=== PATIENT | male | born 1965 | race Caucasian/White ===

== ENCOUNTER 2016-10-25 08:02 | Day surgery (SDC) | payer BC ==
--- NOTE | 2016-10-22 06:04 | HP ---
DATE OF ADMISSION: 10/25/2016 CHIEF COMPLAINT: Umbilical hernia. HISTORY OF PRESENT ILLNESS: The patient is a 51-year-old male who was seen in the office initially last December with complaints of an umbilical hernia. Since that time the hernia has gotten somewhat larger at times it is painful to him. Denies change in bowel habits. Recently he had a work physical and a small left inguinal hernia was identified. The patient has no pain in the left groin. He did have a inguinal hernia repaired at on the left. He himself cannot feel the mass in the left groin. PAST MEDICAL HISTORY: Denies. PAST SURGICAL HISTORY: Left inguinal hernia, left finger. MEDICATIONS: None. ALLERGIES: CODEINE, IBUPROFEN. PHYSICAL EXAM: HEENT is normocephalic. Sclerae anicteric. GENERAL: Well-developed, well-nourished male in no distress. CHEST: No deformities. ABDOMEN: Soft, nondistended. Moderate sized incarcerated umbilical hernia. Small reducible left inguinal hernia and nontender. Both testes normal. No palpable right inguinal hernia. Previous scar on the left is noted. IMPRESSION: A 51-year-old male with symptomatic umbilical hernia. PLAN: Will proceed with laparoscopic repair of incarcerated umbilical hernia with robotic assistance. The risks of bleeding, infection, pain, scarring, recurrence, bowel injury were all discussed. The patient understands and wishes to proceed. Additionally, it was discussed that a sosa would be assisting with the proposed surgery.
[2016-10-22 10:12] VITALS: BMI 29.0
[~2016-10-25 08:02] MED LIST: DEXAMETHASONE SOD PHOSPHATE 10 MG/ML 1 ML VIAL IV ONE; HEPARIN SODIUM,PORCINE 5,000 UNIT/ML 1 ML VIAL SQ ONE; LACTATED RINGERS 1,000 ML IV ONE; LIDOCAINE 1% 20 ML VIAL (10MG/ML) FOR IV START INTRADERMA PRN; ONDANSETRON 4 MG/2 ML VIAL IVP ONE; SCOPOLAMINE 1.5MG/72HR PATCH TRANSDERM ONE; ceFAZolin 2 GM in SODIUM CHLORIDE 0.9% 100 ML IVPB ONE; fentaNYL (PF) 50 MCG/ML 2 ML AMP IV PRN
[2016-10-25] MEDS ORDERED: LIDOCAINE 1% 20 ML VIAL (10MG/ML) FOR IV START INTRADERMA ONE (08:41)
[2016-10-25] MEDS ORDERED: METOPROLOL TARTRATE 5 MG/5 ML VIAL IVP ONE (08:45)
[2016-10-25 09:00] LABS: Basophils # (A) 0.1 k/uL (0-0.2); Basophils % (A) 1 %; CHCM 35.3; Eosinophils # (A) 0.3 k/uL (0-0.7); Eosinophils % (A) 4 %; HDW 2.65; HGB 16.5 gm/dL (13.0-17.5); Luc # (Auto) 0.19; Luc % (Auto) 2; Lymphocytes # (A) 2.3 k/uL (1.0-4.8); Lymphocytes % (A) 29 %; MCH 29.9 pg (25.0-35.0); MCV 85.4 fL (80.0-100.0); Mean Platelet Volume 7.9; Monocytes # (A) 0.5 k/uL (0-1.0); Monocytes % (A) 6 %; Neutrophils # (A) 4.5 k/uL (1.3-7.7); Neutrophils % (A) 57 %; RBC 5.51 m/uL (4.30-5.90); RDW 13.5 % (11.5-15.5); WBC 7.8 k/uL (3.8-10.6); WBC (Perox) 8.25
[2016-10-25] MEDS ORDERED: MIDAZOLAM 2 MG/2 ML VIAL IV ONE (09:13)
[2016-10-25] MEDS ORDERED: LIDOCAINE 1% INJ 10MG/ML (20 ML MDV) ONE (09:31)
[2016-10-25] MEDS ORDERED: MIDAZOLAM 2 MG/2 ML VIAL ONE (09:31)
[2016-10-25] MEDS ORDERED: NEOSTIGMINE 1 MG/ML 10 ML VIAL ONE (09:31)
[2016-10-25] MEDS ORDERED: GLYCOPYRROLATE 0.2 MG/ML 2 ML VIAL ONE (09:31)
[2016-10-25] MEDS ORDERED: SUCCINYLCHOLINE CHLORIDE 100 MG/5 ML SYR IV ONE (09:31)
[2016-10-25] MEDS ORDERED: fentaNYL (PF) 50 MCG/ML 2 ML AMP ONE (09:31)
[2016-10-25] MEDS ORDERED: PROPOFOL 10 MG/ML 20 ML VIAL IV ONE (09:31)
[2016-10-25] MEDS ORDERED: ROCURONIUM BROMIDE 10 MG/ML 10 ML VIAL IV ONE (09:31)
[2016-10-25] MEDS ORDERED: BUPIVACAIN-EPI 0.25%-1:200,000 30 ML VIAL SQ ONE (10:10)
[2016-10-25 12:12] VITALS: TEMP 97.6
[2016-10-25] MEDS ORDERED: HYDROmorphone 1 MG/ML 1 ML SYRINGE IVP ONE (12:24)
[2016-10-25] MEDS ORDERED: traMADol 50 MG TAB PO PRN (12:25)
[2016-10-25] MEDS ORDERED: NALOXONE 0.4 MG/ML 1 ML VIAL IV PRN (12:25)
--- NOTE | 2016-10-25 12:32 | P.OP ---
Date of Procedure: 10/25/16 Procedure(s) Performed: PREOPERATIVE DIAGNOSIS: Incarcerated umbilical hernia POSTOPERATIVE DIAGNOSIS: Same PROCEDURE: Laparoscopic repair incarcerated umbilical hernia with da Kenna robot assistance SURGEON: Bhavya EBL: Minimal ANESTHESIA: General COMPLICATIONS: None OPERATIVE PROCEDURE: Patient was placed in the operative table in the supine position. The patient was placed under general anesthesia. The patient did not void preoperatively and for that reason a Méndez catheter was placed. The abdomen was prepped and draped in usual sterile fashion. A 5 mm optical trocar was used to gain entrance into the abdominal cavity in the left upper quadrant. Insufflation took place at that time. A 12 mm trocar was then placed in the lateral aspect of the left midabdomen after rotating the patient slightly to the right. An 8 mm trocar was placed in the left lower quadrant under direct visualization. The initial 5 was then switched to an 8 mm trochars well. The robotic arms were brought in and docking into place. The pro-grasp was advanced into the abdominal cavity through the left lower quadrant trocar site under direct visualization and the Metzenbaums were advanced into the left upper quadrant trocar site under direct visualization. The 12 mm 30 scope was advanced into the perineal cavity directed up. The incarcerated fat present within the hernia was then carefully dissected using both blunt dissection and cautery. The preperitoneal space was then dissected and the fatty preperitoneal tissue was retracted superiorly and inferiorly. This exposed to the fascial defect nicely. This measured about 2.5 cm in size. The defect was then closed vertically using a running 0 Stretta fix suture. This reapproximated the fascial defect nicely. The 11 mm ventral light mesh was then utilized. This was brought up to the abdominal wall using a Dillon Blount and a previously placed stitch in the center of the mesh. The mesh was then circumferentially sutured to the peritoneum and posterior fascial structures using short running 2-0 Stretta fix sutures. This suture was also utilized in the center to approximate the mesh to the abdominal wall. At this time the needles were removed. The fascia at the 12 mm site was closed using 2 separate 0 Vicryl sutures and the Dillon Blount technique. Incidentally the patient's left internal hernia was inspected and noted to be fairly small. The pneumoperitoneum was evacuated. The skin at the 3 incision sites were closed using interrupted 4-0 Monocryl sutures. A cotton ball was placed within the umbilicus and a suction dressing was applied. Steri-Strips and sterile dressings were applied to the incision sites. DISPOSITION: Stable to recovery room
[2016-10-25] MEDS ORDERED: traMADol 50 MG TAB PO ONE (14:15)
[2016-10-25 15:55] VITALS: RESP 16
[2016-10-25 16:34] VITALS: BP 140/91; PULSE 83
== END 2016-10-25 17:30 | disposition home or self-care (01) ==
LOC: OR 08:02
PROVIDERS: ATTEND Surgery
DX: K42.0 Umbilical hernia with obstruction, without gangrene (principal); K40.90 Unilateral inguinal hernia, without obstruction or gangrene, not specified as recurrent; I25.10 Atherosclerotic heart disease of native coronary artery without angina pectoris; I10 Essential (primary) hypertension; F17.210 Nicotine dependence, cigarettes, uncomplicated; I25.2 Old myocardial infarction; E78.5 Hyperlipidemia, unspecified; Z79.82 Long term (current) use of aspirin; Z79.899 Other long term (current) drug therapy; Z88.5 Allergy status to narcotic agent; Z88.8 Allergy status to other drugs, medicaments and biological substances
CPT/HCPCS: 49653; S2900; 85025; 93005

== ENCOUNTER 2020-03-27 03:37 | Emergency (ER) | payer OTHER ==
[2020-03-27 03:45] VITALS: TEMP 97.5
[2020-03-27] MEDS ORDERED: SODIUM CHLORIDE 0.9% 1,000 ML IV STA ×2 (03:52→04:02)
[2020-03-27] MEDS ORDERED: MORPHINE SULFATE 4 MG/ML SYRINGE IVP STA ×2 (04:02)
--- NOTE | 2020-03-27 04:04 | ED ---
Back Pain HPI - General Chief Complaint: Back Pain/Injury Stated Complaint: Lt Arm Pain Time Seen by Provider: 03/27/20 03:45 Source: patient, RN notes reviewed, old records reviewed Limitations: no limitations - History of Present Illness Initial Comments: Is a 54-year-old male today. Patient Dese for evaluation of shoulder pain severe chest pain related to back to her left scapula symptoms for a week have been episodic and severe today with some shortness of breath. Patient has history of muscular skeletal injury and scapular pain from doing a lot of physical labor. Sensation states pain just feels little bit different. Denying any fevers and no shortness of breath currently MD Complaint: back pain, back injury, other (Severe left shoulder cramping in the back pain) -: week(s) Similar Symptoms Previously: Yes Place: home Radiation: none Severity: severe Severity scale (1-10): 8 Quality: sharp Consistency: intermittent Improves With: none Worsens With: movement Context: while lifting, turning/twisting Associated Symptoms: denies other symptoms - Related Data Home Medications Medication Instructions Recorded Confirmed Aspirin [Adult Low Dose Aspirin EC] 81 mg PO DAILY 10/22/16 10/25/16 Atorvastatin Calcium [Lipitor] 80 mg PO HS 10/22/16 10/25/16 Lisinopril 5 mg PO BID 10/22/16 10/25/16 Metoprolol Tartrate 25 mg PO BID 10/22/16 10/25/16 Nitroglycerin Sl Tabs [Nitrostat] 0.4 mg SL DIRECTED PRN 10/22/16 10/25/16 Previous Rx's Medication Instructions Recorded traMADol HCl [Ultram] 50 mg PO Q6H PRN #30 tab 10/25/16 Allergies Allergy/AdvReac Type Severity Reaction Status Date / Time aspirin Allergy Rash/Hives Verified 03/27/20 03:45 codeine Allergy Unknown Verified 03/27/20 03:45 ibuprofen Allergy Swelling Verified 03/27/20 03:45 Review of Systems ROS Statement: Those systems with pertinent positive or pertinent negative responses have been documented in the HPI. ROS Other: All systems not noted in ROS Statement are negative. Past Medical History Past Medical History: Hyperlipidemia, Hypertension, Myocardial Infarction ([place]) Last Myocardial Infarction Date:: 2011 History of Any Multi-Drug Resistant Organisms: None Reported Past Surgical History: Heart Catheterization With Stent, Hernia Repair, Orthopedic Surgery Additional Past Surgical History / Comment(s): tendon to index finger. REMOVAL POLYPS FROM THROAT Past Anesthesia/Blood Transfusion Reactions: No Reported Reaction Date of Last Stent Placement:: 2011 Past Psychological History: No Psychological Hx Reported Smoking Status: Current every day smoker Past Alcohol Use History: None Reported Past Drug Use History: None Reported - Past Family History Mother Family Medical History: Cancer General Exam Limitations: no limitations General appearance: alert, in no apparent distress Head exam: Present: atraumatic, normocephalic, normal inspection Eye exam: Present: normal appearance, PERRL, EOMI. Absent: scleral icterus, conjunctival injection, periorbital swelling ENT exam: Present: normal exam, mucous membranes moist Neck exam: Present: normal inspection. Absent: tenderness, meningismus, lymphadenopathy Respiratory exam: Present: normal lung sounds bilaterally. Absent: respiratory distress, wheezes, rales, rhonchi, stridor Cardiovascular Exam: Present: regular rate, normal rhythm, normal heart sounds. Absent: systolic murmur, diastolic murmur, rubs, gallop, clicks GI/Abdominal exam: Present: soft, normal bowel sounds. Absent: distended, tenderness, guarding, rebound, rigid Extremities exam: Present: normal inspection, full ROM, normal capillary refill, other (. Tenderness to left shoulder and left scapular area). Absent: tenderness, pedal edema, joint swelling, calf tenderness Back exam: Present: normal inspection Neurological exam: Present: alert, oriented X3, CN II-XII intact Psychiatric exam: Present: normal affect, normal mood Skin exam: Present: warm, dry, intact, normal color. Absent: rash Course Vital Signs 03/27/20 03/27/20 03/27/20 03:40 05:30 06:53 Temperature 97.5 F L Pulse Rate 70 61 66 Respiratory 20 19 18 Rate Blood Pressure 156/109 131/80 125/75 O2 Sat by Pulse 98 96 97 Oximetry - Reevaluation(s) Reevaluation #1: Medical records reviewed Pain is controlled Patient informed of results okay for discharge Medical Decision Making - Medical Decision Making 54 male DF for evaluation patient does appear to muscle skeletal injury, muscle strain and pain. Patient's pain is controlled here in the ER and can be discharged home - Lab Data Result diagrams: 03/27/20 04:00 03/27/20 04:00 Lab Results 03/27/20 03/27/20 03/27/20 Range/Units 04:00 04:00 04:00 WBC 11.0 H (3.8-10.6) k/uL RBC 5.25 (4.30-5.90) m/uL Hgb 15.2 (13.0-17.5) gm/dL Hct 45.6 (39.0-53.0) % MCV 86.8 (80.0-100.0) fL MCH 29.0 (25.0-35.0) pg MCHC 33.4 (31.0-37.0) g/dL RDW 13.4 (11.5-15.5) % Plt Count 233 (150-450) k/uL Neutrophils % 63 % Lymphocytes % 23 % Monocytes % 7 % Eosinophils % 5 % Basophils % 1 % Neutrophils # 6.9 (1.3-7.7) k/uL Lymphocytes # 2.5 (1.0-4.8) k/uL Monocytes # 0.7 (0-1.0) k/uL Eosinophils # 0.6 (0-0.7) k/uL Basophils # 0.1 (0-0.2) k/uL PT 9.6 (9.0-12.0) sec INR 0.9 (<1.2) APTT 23.5 (22.0-30.0) sec D-Dimer 0.44 (<0.60) mg/L FEU Sodium 136 L (137-145) mmol/L Potassium 4.1 (3.5-5.1) mmol/L Chloride 108 H (98-107) mmol/L Carbon Dioxide 20 L (22-30) mmol/L Anion Gap 8 mmol/L BUN 12 (9-20) mg/dL Creatinine 0.78 (0.66-1.25) mg/dL Est GFR (CKD-EPI)AfAm >90 (>60 ml/min/1.73 sqM) Est GFR (CKD-EPI)NonAf >90 (>60 ml/min/1.73 sqM) Glucose 134 H (74-99) mg/dL Calcium 9.2 (8.4-10.2) mg/dL Magnesium 1.9 (1.6-2.3) mg/dL Total Bilirubin 0.6 (0.2-1.3) mg/dL AST 25 (17-59) U/L ALT 21 (4-49) U/L Alkaline Phosphatase 70 (38-126) U/L Troponin I (0.000-0.034) ng/mL NT-Pro-B Natriuret Pep pg/mL Total Protein 7.1 (6.3-8.2) g/dL Albumin 4.0 (3.5-5.0) g/dL Lipase 62 (23-300) U/L 03/27/20 03/27/20 Range/Units 04:00 04:00 WBC (3.8-10.6) k/uL RBC (4.30-5.90) m/uL Hgb (13.0-17.5) gm/dL Hct (39.0-53.0) % MCV (80.0-100.0) fL MCH (25.0-35.0) pg MCHC (31.0-37.0) g/dL RDW (11.5-15.5) % Plt Count (150-450) k/uL Neutrophils % % Lymphocytes % % Monocytes % % Eosinophils % % Basophils % % Neutrophils # (1.3-7.7) k/uL Lymphocytes # (1.0-4.8) k/uL Monocytes # (0-1.0) k/uL Eosinophils # (0-0.7) k/uL Basophils # (0-0.2) k/uL PT (9.0-12.0) sec INR (<1.2) APTT (22.0-30.0) sec D-Dimer (<0.60) mg/L FEU Sodium (137-145) mmol/L Potassium (3.5-5.1) mmol/L Chloride (98-107) mmol/L Carbon Dioxide (22-30) mmol/L Anion Gap mmol/L BUN (9-20) mg/dL Creatinine (0.66-1.25) mg/dL Est GFR (CKD-EPI)AfAm (>60 ml/min/1.73 sqM) Est GFR (CKD-EPI)NonAf (>60 ml/min/1.73 sqM) Glucose (74-99) mg/dL Calcium (8.4-10.2) mg/dL Magnesium (1.6-2.3) mg/dL Total Bilirubin (0.2-1.3) mg/dL AST (17-59) U/L ALT (4-49) U/L Alkaline Phosphatase (38-126) U/L Troponin I <0.012 (0.000-0.034) ng/mL NT-Pro-B Natriuret Pep 113 pg/mL Total Protein (6.3-8.2) g/dL Albumin (3.5-5.0) g/dL Lipase (23-300) U/L - EKG Data -: EKG Interpreted by Me (EKG is sinus rhythm of 67, ID 180, QRS 90, QTc 412) - Radiology Data Radiology results: report reviewed (CT a chest negative for aacute dz), image reviewed Disposition Clinical Impression: Left shoulder pain, Thoracic back pain Disposition: HOME SELF-CARE Condition: Good Instructions (If sedation given, give patient instructions): Shoulder Sprain (ED), Back Pain (ED) Is patient prescribed a controlled substance at d/c from ED?: No Referrals: Nain Jenkins MD [Primary Care Provider] - 1-2 days
[2020-03-27 04:19] LABS: Basophils # (A) 0.1 k/uL (0-0.2); Basophils % (A) 1 %; Eosinophils # (A) 0.6 k/uL (0-0.7); Eosinophils % (A) 5 %; HCT 45.6 % (39.0-53.0); HGB 15.2 gm/dL (13.0-17.5); Lymphocytes # (A) 2.5 k/uL (1.0-4.8); Lymphocytes % (A) 23 %; MCHC 33.4 g/dL (31.0-37.0); MCV 86.8 fL (80.0-100.0); Mean Platelet Volume 8.5; Monocytes # (A) 0.7 k/uL (0-1.0); Monocytes % (A) 7 %; Neutrophils # (A) 6.9 k/uL (1.3-7.7); Neutrophils % (A) 63 %; Platelet Count 233 k/uL (150-450); RBC 5.25 m/uL (4.30-5.90); RDW 13.4 % (11.5-15.5)
[2020-03-27 04:28] LABS: ALT 21 U/L (4-49); AST 25 U/L (17-59); African American GFR (CKD) >90 (>60 ml/min/1.73 sqM); Alkaline Phosphatase 70 U/L (38-126); Anion Gap 8 mmol/L; Blood Urea Nitrogen 12 mg/dL (9-20); Calcium 9.2 mg/dL (8.4-10.2); Carbon Dioxide 20 mmol/L (22-30); Chloride 108 mmol/L (98-107); Glucose 134 mg/dL (74-99); Magnesium 1.9 mg/dL (1.6-2.3); Non-African American GFR(CKD) >90 (>60 ml/min/1.73 sqM); Potassium 4.1 mmol/L (3.5-5.1); Sodium 136 mmol/L (137-145); Total Bilirubin 0.6 mg/dL (0.2-1.3); Total Protein 7.1 g/dL (6.3-8.2)
[2020-03-27 04:31] LABS: D-Dimer 0.44 mg/L FEU (<0.60); INR 0.9 (<1.2); Partial Thromboplastin Time 23.5 sec (22.0-30.0); Prothrombin Time 9.6 sec (9.0-12.0)
--- NOTE | 2020-03-27 04:40 | CT ---
EXAMINATION TYPE: CT angio chest DATE OF EXAM: 03/27/2020 COMPARISON: None HISTORY: PE Short of breath. CT DLP: 543.1 mGycm Automated exposure control for dose reduction was used. CONTRAST: Performed with IV Contrast, patient injected with 100 mL of Isovue 370. There are 3-D post processed images. There is some bullous emphysema. There is mild interstitial subpleural density in the posterior lung sutton. Heart size is normal. There is no pericardial effusion. There is no pleural effusion. There is normal contrast opacification of the pulmonary arteries. There are no filling defects. Thoracic aorta shows no aneurysm or dissection. There is no mediastinal adenopathy. There are no hailey r masses. There is some spurring in the thoracic spine. I see no bony destructive process. There is no compress ion fracture. IMPRESSION: Emphysema. Minimal interstitial infiltrates in the posterior lung sutton. No evidence of pulmonary em bolism.
[2020-03-27] MEDS ORDERED: HYDROmorphone 1 MG/ML 1 ML SYRINGE IVP STA (05:50)
[2020-03-27] MEDS ORDERED: KETOROLAC 30 MG/ML 1 ML VIAL IVP STA (06:06)
[2020-03-27] MEDS: ACET/COD 300 MG/30 MG STARTER PACK 6 TAB BTL PO STA ×2 (06:23→06:29)
[2020-03-27] MEDS ORDERED: traMADol 50 MG STARTER PACK 3 TAB BTL PO STA (06:32)
[2020-03-27 06:58] VITALS: BP 125/75; PULSE 66; RESP 18
== END 2020-03-27 06:25 | disposition home or self-care (01) ==
LOC: EC 03:37
DX: S46.912A Strain of unspecified muscle, fascia and tendon at shoulder and upper arm level, left arm, initial encounter (principal); M54.6 Pain in thoracic spine; R06.02 Shortness of breath; E78.2 Mixed hyperlipidemia; I10 Essential (primary) hypertension; I25.2 Old myocardial infarction; F17.200 Nicotine dependence, unspecified, uncomplicated; Z79.82 Long term (current) use of aspirin; Z79.899 Other long term (current) drug therapy; Z88.5 Allergy status to narcotic agent; Z88.6 Allergy status to analgesic agent; Z95.5 Presence of coronary angioplasty implant and graft; X50.0XXA Overexertion from strenuous movement or load, initial encounter
CPT/HCPCS: 99284; 96374; 96375 ×2; 96361 ×2; 36415; 93005; 85379; 83880; 80053; 83690; 83735; 84484; 85025; 85610; 85730; 71275; J2270; J1885; J1170; Q9967

== ENCOUNTER 2021-07-13 21:09 | Emergency (ER) | payer OTHER ==
[2021-07-13 22:02] VITALS: BP 151/84; PULSE 77; RESP 16; TEMP 98.5
--- NOTE | 2021-07-13 23:15 | ED ---
General Adult HPI - General Chief complaint: Recheck/Abnormal Lab/Rx Stated complaint: covid exposure Time Seen by Provider: 07/13/21 23:02 Source: patient, RN notes reviewed Mode of arrival: ambulatory - History of Present Illness Initial comments: 55-year-old male presents to the emergency department for evaluation of concerns related to a COVID-19 exposure. Patient states his stepson notified him today that he tested positive for COVID and they last had contact yesterday. Patient denies any symptoms, but is requesting a COVID test. Patient denies fever, chills, headache, chest pain, shortness of breath, nausea, vomiting, loss of taste, and body aches. - Related Data Home Medications Medication Instructions Recorded Confirmed Aspirin [Adult Low Dose Aspirin EC] 81 mg PO DAILY 10/22/16 10/25/16 Atorvastatin Calcium [Lipitor] 80 mg PO HS 10/22/16 10/25/16 Metoprolol Tartrate 25 mg PO BID 10/22/16 10/25/16 Nitroglycerin Sl Tabs [Nitrostat] 0.4 mg SL DIRECTED PRN 10/22/16 10/25/16 lisinopriL [Lisinopril] 5 mg PO BID 10/22/16 10/25/16 Previous Rx's Medication Instructions Recorded traMADol HCl [Ultram] 50 mg PO Q6H PRN #30 tab 10/25/16 Allergies Allergy/AdvReac Type Severity Reaction Status Date / Time aspirin Allergy Rash/Hives Verified 07/13/21 22:01 codeine Allergy Unknown Verified 07/13/21 22:01 ibuprofen Allergy Swelling Verified 07/13/21 22:01 Review of Systems ROS Statement: Those systems with pertinent positive or pertinent negative responses have been documented in the HPI. ROS Other: All systems not noted in ROS Statement are negative. Past Medical History Past Medical History: Hyperlipidemia, Hypertension, Myocardial Infarction ([place]) Last Myocardial Infarction Date:: 2011 History of Any Multi-Drug Resistant Organisms: None Reported Past Surgical History: Heart Catheterization With Stent, Hernia Repair, Orthopedic Surgery Additional Past Surgical History / Comment(s): tendon to index finger. REMOVAL POLYPS FROM THROAT Past Anesthesia/Blood Transfusion Reactions: No Reported Reaction Date of Last Stent Placement:: 2011 Past Psychological History: No Psychological Hx Reported Smoking Status: Former smoker Past Alcohol Use History: None Reported Past Drug Use History: None Reported - Past Family History Mother Family Medical History: Cancer General Exam General appearance: alert, in no apparent distress Respiratory exam: Present: normal lung sounds bilaterally. Absent: respiratory distress, wheezes, rales, rhonchi, stridor Cardiovascular Exam: Present: regular rate, normal rhythm, normal heart sounds. Absent: systolic murmur, diastolic murmur, rubs, gallop, clicks GI/Abdominal exam: Present: soft, normal bowel sounds. Absent: distended, tenderness, guarding, rebound, rigid Neurological exam: Present: alert, oriented X3, CN II-XII intact Psychiatric exam: Present: normal affect, normal mood Skin exam: Present: warm, dry, intact, normal color. Absent: rash Course Vital Signs 07/13/21 21:56 Temperature 98.5 F Pulse Rate 77 Respiratory 16 Rate Blood Pressure 151/84 O2 Sat by Pulse 98 Oximetry Medical Decision Making - Medical Decision Making 55-year-old male was evaluated for concerns related to a known COVID + exposure. Significant findings on physical exam as patient did not have any complaints. Results of rapid Covid test were negative. Discussed importance of ongoing monitoring and an awareness of symptoms. Patient was instructed to follow-up with his primary care provider for recheck in the next 1-2 days. He verbalizes understanding and agrees with plan. The patient's case was discussed with my attending, Dr. Cole. - Lab Data Lab Results 07/13/21 Range/Units 22:02 Coronavirus (PCR) Not Detected (Not Detectd) Disposition Clinical Impression: Exposure to COVID-19 virus Disposition: HOME SELF-CARE Condition: Good Instructions (If sedation given, give patient instructions): Coronavirus Disease 2019 (COVID-19) Additional Instructions: Your COVID test was negative. Continued to monitor for signs of COVID infection including cough, congestion, fever, chills, nausea, vomiting, loss of taste or smell. Repeat test if symptoms develop. Follow-up with your primary care provider for a recheck as needed. Return to the emergency department with any new, worsening, or concerning symptoms. Is patient prescribed a controlled substance at d/c from ED?: No Referrals: Nain Jenkins MD [Primary Care Provider] - 1-2 days Time of Disposition: 23:15
== END 2021-07-13 23:20 | disposition home or self-care (01) ==
LOC: EC 21:09
DX: Z20.822 Contact with and (suspected) exposure to COVID-19 (principal); I10 Essential (primary) hypertension; I25.2 Old myocardial infarction; E78.5 Hyperlipidemia, unspecified; Z79.82 Long term (current) use of aspirin; Z88.5 Allergy status to narcotic agent; Z88.6 Allergy status to analgesic agent; Z87.891 Personal history of nicotine dependence
CPT/HCPCS: 87635; 99282